=== PATIENT | male | born 1975 | race African-American/Black ===

== ENCOUNTER 2020-01-30 08:52 | Emergency (ER) | payer OTHER ==
[~2020-01-30] VITALS: Ht 177.8 cm; Wt 108.9 kg
[~2020-01-30 08:52] MED LIST: ELIQUIS5 MG PO; ELOQUIST PO; HEARTBURN RELIE75 M1; IBUPROFEN 800800 M1 PO; NORCO 5-325 TA1 EACH PO; PROPRANOLOL; PROPRANOLOL 1010 M1; PROPRANOLOL 1010 MG PO; PROTONIX40 M1 PO; ULTRAM 50MG TAB50 MG PO
[2020-01-30] MEDS ORDERED: ELIQUIS5 MG PO (08:56)
[2020-01-30] MEDS ORDERED: BENADRYL25 MG PO (08:57)
[2020-01-30] MEDS ORDERED: LIPITOR 20 MG T20 M1 PO (08:57)
[2020-01-30 10:08] LABS: ABSOLUTE EOSINOPHILS 0.1 thou/uL (0.0-0.7); ABSOLUTE LYMPHOCYTES 1.2 thou/uL (0.8-5.3); ABSOLUTE MONOCYTES 0.3 thou/uL (0.0-1.2); ABSOLUTE NEUTROPHILS 2.3 thou/uL (1.6-8.1); BASOPHILS 0.8 %; EOSINOPHILS 2.3 %; LYMPHOCYTES 30.4 %; MCH 30.5 pg (26.0-34.0); MCHC 34.2 g/dL (28.0-37.0); MCV 89.2 fL (80.0-100.0); MONOCYTES 8.3 %; MPV 9.1 fl. (7.2-11.1); NUCLEATED RBCS 0 /100WBC; PLATELET COUNT* 109 thou/uL (150-400); POLYS 58.2 %; RBC 4.93 mil/uL (4.50-6.00); RDW-CV 15.4 % (10.5-14.5); WBC 3.9 thou/uL (4.0-11.0)
[2020-01-30 10:15] LABS: CALCIUM 8.1 mg/dL (8.5-10.1); CREATININE 1.1 mg/dL (0.6-1.3); POTASSIUM 4.4 mmol/L (3.5-5.1)
--- NOTE | 2020-01-30 10:15 | EKG ---
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
[2020-01-30 10:28] LABS: ALBUMIN 3.2 g/dL (3.4-5.0); CK-MB MASS 1.1 ng/mL (<0.5-3.6); MAGNESIUM 1.9 mg/dL (1.8-2.4); TOTAL BILIRUBIN 0.6 mg/dL (<0.1-1.0); TOTAL PROTEIN 7.1 g/dL (6.4-8.2)
[2020-01-30 10:42] LABS: INR 1.1; PROTIME 11.2 Seconds (9.20-11.50)
[2020-01-30 14:03] VITALS: BP 145/94
== END 2020-01-30 14:04 | disposition home or self-care (01) ==
LOC: M.ERS 08:52
PROVIDERS: Emergency Medicine
DX: R07.89 Other chest pain (principal); I10 Essential (primary) hypertension; Z91.040 Latex allergy status

== ENCOUNTER 2021-07-21 12:01 | Observation (INO) | payer OTHER ==
[~2021-07-21] VITALS: Ht 175.3 cm; Wt 117.9 kg
[~2021-07-21 12:01] MED LIST changes: +BENADRYL25 MG PO; +LIPITOR 20 MG T20 M1 PO
[2021-07-21 12:04] VITALS: BP 144/81
[2021-07-21] MEDS ORDERED: METFORMIN HCL500 M3 PO (12:07)
[2021-07-21] MEDS ORDERED: PROPRANOLOL 20M20 M1 PO (12:08)
[2021-07-21 12:50] LABS: ABSOLUTE EOSINOPHILS 0.1 thou/uL (0.0-0.7); ABSOLUTE LYMPHOCYTES 1.6 thou/uL (0.8-5.3); ABSOLUTE MONOCYTES 0.5 thou/uL (0.0-1.2); ABSOLUTE NEUTROPHILS 3.1 thou/uL (1.6-8.1); BASOPHILS 0.8 %; EOSINOPHILS 2.6 %; HEMATOCRIT 42.4 % (42.0-52.0); HEMOGLOBIN 14.3 gm/dL (14.0-18.0); MCHC 33.7 g/dL (28.0-37.0); MCV 88.9 fL (80.0-100.0); MONOCYTES 9.4 %; MPV 9.1 fl. (7.2-11.1); NUCLEATED RBCS 0 /100WBC; PLATELET COUNT* 100 thou/uL (150-400); POLYS 57.2 %; RBC 4.77 mil/uL (4.50-6.00); RDW-CV 15.4 % (10.5-14.5); WBC 5.4 thou/uL (4.0-11.0)
--- NOTE | 2021-07-21 12:54 | EKG ---
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
[2021-07-21 13:04] LABS: CALCIUM 9.1 mg/dL (8.5-10.1); CREATININE 1.1 mg/dL (0.6-1.3); POTASSIUM 4.2 mmol/L (3.5-5.1)
[2021-07-21 13:08] LABS: ALBUMIN 3.4 g/dL (3.4-5.0); MAGNESIUM 1.9 mg/dL (1.8-2.4); TOTAL BILIRUBIN 0.6 mg/dL (<0.1-1.0); TOTAL PROTEIN 7.5 g/dL (6.4-8.2)
[2021-07-21 17:51] VITALS: BP 137/83
[2021-07-21 20:44] VITALS: BP 133/54
[2021-07-22] VITALS (7 sets, daily range): BP systolic 124–197; BP diastolic 76–87
--- NOTE | 2021-07-22 15:38 | EXE ---
[place] [address] STRESS ECHOCARDIOGRAM Name: IVONNE MARRERO Kianna Avery [address]#: [id number] Admission: 07/21/21 Attend Phys: Elliot Bennett Discharge: Date of : 73 Date of Service: 07/22/21 1538 Report #: [id number] THIS REPORT FOR: cc: Senait Edmond MD, Nita MD Liston, Michael J. MD [facility] ~ APPROVED REPORT Study performed: 07/22/2021 13:09:23 Exam: Stress Echocardiogram Indication: Dyspnea , Chest pain Patient Location: In-Patient Stress Nurse: Leslie Brasher RN Room #: [facility] [place] Supervising Physician: Tee Richey MD Ht: 5 ft 9 in HR: 63 bpm BP: 162/106 mmHg Medical History Cardiac Risk Factors: Hyperlipidemia, HTN Procedure The patient underwent an Exercise Stress Test using the Azam Protocol. Blood pressure, heart rate, and EKG were monitored. An Echocardiogram was performed by electronic sales and service technician in four stages in quad fashion. At peak stress, four selected images were obtained and placed side by side with resting images for comparison. Stress Test Details Stress Test: Exercise stress testing was performed using a Azam protocol. HR Resting HR: 63 bpm Max Heart Rate (APMHR): 173 bpm Max HR Achieved: 122 bpm Target HR (85% APMHR): 147 bpm % of APMHR: 70 Recovery HR: 81 bpm HR response to stress: Normal HR response to stress BP Resting BP: 162/106 mmHg Max BP: 147/91 mmHg Recovery BP: 143/77 [place] [address] STRESS ECHOCARDIOGRAM Name: JANESIVONNE Bennie Room: [address] David#: [id number] Admission: 07/21/21 Attend Phys: Elliot Bennett Discharge: Date of : 73 Date of Service: 07/22/21 1538 Report #: [id number] BP response to stress: Normal blood pressure response to stress. ECG Resting ECG: Sinus Rhythm Stress ECG: Sinus Tachycardia ST Change: None Arrhythmia: None Recovery ECG: Sinus Rhythm Recovery ST Change: None Recovery Arrhythmia: None Clinical Reason for Termination: Maximal effort Exercise duration: 8 min 02 sec Highest Stage Achieved: Stage 2: 2.5 mph at 12% grade. Exercise capacity: 10.16 METs The patient failed to achieve target heart rate achieving only 71% of age-predicted maximum heart rate. The patient had no significant cardiac symptoms. Stress ECG Conclusion The baseline twelve-lead EKG shows sinus rhythm without significant ST segment or T wave abnormality. EKGs obtained during and post exercise stress show sinus rhythm and sinus tachycardia with no significant ST segment or T wave changes when compared to baseline. There were no stress-induced arrhythmias. Pre-Stress Echo The resting Echocardiogram showed normal left ventricular contractility with an estimated Ejection Fraction of about 55-60%. The resting echocardiogram demonstrated normal wall motion in all wall segments. Post-Stress Echo The stress Echocardiogram showed normal left ventricular contractility with an estimated Ejection Fraction of about >70%. Compared to rest, there were no stress-induced wall motion abnormalities. Conclusion Clinical Response: Non-ischemic Exercise Capacity: Average Stress ECG Response: Non-ischemic Stress Echo Images: Non-ischemic The patient failed to achieve target heart rate presumably due to prescribed beta-blockers. There was [place] [address] STRESS ECHOCARDIOGRAM Name: IVONNE MARRERO Room: [address]#: [id number] Admission: 07/21/21 Attend Phys: Elliot Bennett Discharge: Date of : 73 Date of Service: 07/22/21 1538 Report #: [id number] inducible ischemia at the level of stress achieved. Consider repeat study after holding beta-blockers if clinically indicated. Other Information Study Quality: Good <Conclusion> The patient failed to achieve target heart rate presumably due to prescribed beta-blockers. There was no EKG or echo evidence of inducible ischemia at the level of stress achieved. Consider repeat study after holding beta-blockers if clinically indicated. <ELECTRONICALLY SIGNED> By: Tee Richey MD, FACC 07/22/21 1538 1538 1538 Tee Richey MD, FAC /INF
--- NOTE | 2021-07-22 18:52 | NUR ---
PT. AOX4, VSS, DENIES PAIN OR DISCOMFORT, CALL LIGHT AND PERSONAL BELONGINGS PLACED WITHIN REACH. DR. GIPSON ORDERED PT. DC POST STRESS TEST RESULT.S DC PAPERWORK PROVIDED, PT VERBALIZED UNDERSTANDING. PT. LEFT FLOOR IN STABLE CONDITION WITH .
== END 2021-07-22 16:30 | disposition home or self-care (01) ==
LOC: M.ERS 12:01 → M.2W 15:04 → M.TBA-ER 15:04 → M.2W 07-22 09:33
PROVIDERS: Nurse Practitioner Family; ADMIT Internal Medicine; ATTEND Internal Medicine
DX: R07.89 Other chest pain (principal); D17.9 Benign lipomatous neoplasm, unspecified; I81 Portal vein thrombosis; Z20.822 Contact with and (suspected) exposure to COVID-19; I10 Essential (primary) hypertension; Z98.890 Other specified postprocedural states; Z79.84 Long term (current) use of oral hypoglycemic drugs; Z79.899 Other long term (current) drug therapy; Z91.048 Other nonmedicinal substance allergy status